=== PATIENT | male | born 1960 | race Caucasian/White ===

== ENCOUNTER 2017-01-28 15:27 | Emergency (ER) | payer OTHER ==
[~2017-01-28] VITALS: Ht 167.6 cm; Wt 90.9 kg
[~2017-01-28 15:27] MED LIST: ABILIFY10 MG PO
[2017-01-28] MEDS ORDERED: LAMICTAL XR25 MG PO (15:38)
[2017-01-28] MEDS ORDERED: ADVIL200 M1 PO (15:38)
[2017-01-28] MEDS ORDERED: BACLOFEN10 MG PO (16:00)
[2017-01-28] MEDS ORDERED: METHYLPREDNISOLO4 M1 PO (16:00)
[2017-01-28] MEDS ORDERED: KETOROLAC TROME10 MG PO (16:00)
== END 2017-01-28 16:10 | disposition home or self-care (01) ==
LOC: ED 15:27
DX: M25.551 Pain in right hip (principal); F31.9 Bipolar disorder, unspecified; F17.200 Nicotine dependence, unspecified, uncomplicated; Z88.2 Allergy status to sulfonamides; Z79.899 Other long term (current) drug therapy
CPT/HCPCS: 99283